=== PATIENT | male | born 1990 | race Caucasian/White ===

== ENCOUNTER 2023-08-15 19:21 | Emergency (ER) | payer OTHER ==
[~2023-08-15] VITALS: Ht 182.9 cm; Wt 95.5 kg
[2023-08-15 19:55] VITALS: TEMP 98.8
[2023-08-15 20:22] LABS: BASOPHILS % (AUTO) 0.3 % (0.0-2.0); EOSINOPHILS % (AUTO) 0.5 % (1.0-6.0); HEMATOCRIT 41.8 % (41-53); HEMOGLOBIN 14.1 g/dL (13.5-17.5); LYMPHOCYTES # (AUTO) 2.1 K/uL (1.0-4.8); LYMPHOCYTES % (AUTO) 25.9 % (22.0-44.0); MEAN CORPUSCULAR HEMOGLOBIN 27.5 pg (26.0-34.0); MEAN CORPUSCULAR HGB CONC 33.8 G/dL (31.0-37.0); MEAN CORPUSCULAR VOLUME 81 fL (80-100); MONOCYTES % (AUTO) 11.8 % (2.0-9.0); NEUTROPHILS # (AUTO) 5.1 K/uL (1.8-7.7); NEUTROPHILS % (AUTO) 61.5 % (40.0-70.0); PLATELET COUNT (AUTO) 202 K/uL (150-450); RED BLOOD CELL COUNT(AUTO) 5.13 MIL/uL (4.50-5.90); RED CELL DISTRIBUTION WIDTH 14.2 % (11.5-14.5); WHITE BLOOD COUNT (AUTO) 8.3 K/uL (4.5-11.0)
[2023-08-15 20:32] LABS: ALCOHOL, BLOOD (SERUM) < 3 mg/dL (0-10)
[2023-08-15 20:39] LABS: TROPONIN I-HIGH SENSITIVITY 24 ng/L (<76)
[2023-08-15 20:40] LABS: ANION GAP 14 mmol/L (8-16); CALCIUM, TOTAL 9.3 mg/dL (8.8-10.5); CARBON DIOXIDE 24 mmol/L (22-29); CHLORIDE 104 mmol/L (98-107); CREATININE 0.58 mg/dL (0.60-1.30); GLOMERULAR FILTR. RATE CALC > 60 mL/min (>60); GLUCOSE,RANDOM 127 mg/dL (70-110); POTASSIUM 3.6 mmol/L (3.5-5.1); SODIUM SERUM 141 mmol/L (136-145); UREA NITROGEN, BLOOD 16 mg/dL (7-18)
[2023-08-15 20:41] VITALS: BP 134/98; PULSE 126; RESP 18
[2023-08-15 20:46] LABS: ALANINE AMINOTRANSFERASE 37 U/L (12-78); ALBUMIN 3.6 g/dL (3.4-5.0); ALKALINE PHOSPHATASE 161 U/L (46-116); ASPARTATE AMINOTRANSFERASE 27 U/L (15-37); BILIRUBIN,TOTAL 0.5 mg/dL (0.1-1.0); LIPASE 21 U/L (16-77)
[2023-08-15] MEDS ORDERED: AmLODIPine BESYLATE 5 MG TABLET PO ONE (21:00)
[2023-08-15] MEDS ORDERED: LORazepam 1 MG TABLET PO ONE (21:00)
== END 2023-08-15 21:50 | disposition home or self-care (01) ==
LOC: EMS 19:23
DX: I10 Essential (primary) hypertension (principal); F15.10 Other stimulant abuse, uncomplicated; K42.9 Umbilical hernia without obstruction or gangrene
CPT/HCPCS: 99284; 71045; 80053; 83690; 84484; 85025; 36415; G0480